=== PATIENT | male | born 1940 | race Caucasian/White ===

== ENCOUNTER → 2018-08-22 | Outpatient (CLI) | payer MEDICARE, BC ==
[2018-01-26 11:00] VITALS: BP 104/46
[~2018-08-22] MED LIST: ACET325T9 PO; ASPI81TA50 PO; ASPI81TA59 PO; ATORVASTATIN CA80 MG PO; Bisacodyl Supp PR; CEPH250C PO; CRESTOR20 MG PO; DOCU-109 PO; DONE5TAB7 PO; DRON400T PO; FEXO60TA25 PO; FURO-68 PO; FURO-69 PO; HYDR-2769 PO; ISOS30TA4 PO; KEFLEX; LEVO150T5 PO; LISI30TA4 PO; METO25TA4 PO; METO50TA6 PO; NIFE30TA17 PO; POTA20TA84 PO; SITA1TAB11 PO; SITA1TAB7 PO; SOTA80TA48 PO; SPIR25TA PO; WARF-31 PO; WARF-78 PO; WARF10TA40 PO; WARF1TAB74 PO; WARF2TAB96 PO; WARF3TAB50 PO; WARF4TAB64 PO; WARF6TAB47 PO
[2018-08-22 09:36] LABS: CALCIUM 9.2 mg/dL (8.5-10.1); CREATININE 3.3 mg/dL (0.7-1.3); GFR 18.1; MAGNESIUM 2.3 mg/dL (1.8-2.4); POTASSIUM 4.9 mmol/L (3.5-5.1)
--- NOTE | 2018-08-22 12:19 | RAD ---
CHEST PA LATERAL History: kidney failure Comparison: 01/25/2018 AP view of the chest. Findings: Sternal wires [place] clips are present. The cardiomediastinal silhouette is normal. Pulmonary vasculature is normal. The lungs are clear. Mild interstitial thickening or edema throughout the lung mesa is evident. No pleural effusion or pneumothorax is seen. There is no acute bone abnormality. IMPRESSION: Mild interstitial thickening or edema of lung mesa similar to previous exam. No focal infiltrate. Electronically signed by: Waylon Thomas MD (08/22/2018 12:15 PM) [facility]
== END | disposition home or self-care (01) ==
LOC: RAD 08:41
PROVIDERS: ATTEND Internal Medicine Cardiovascular Disease
DX: N19 Unspecified kidney failure (principal)
CPT/HCPCS: 36415; 71046; 80048; 83695; 83735

== ENCOUNTER → 2018-09-04 | Outpatient (CLI) | payer MEDICARE, BC ==
[2018-01-26 11:00] VITALS: BP 104/46
--- NOTE | 2018-09-04 10:45 | KCIC ---
RENAL COMPLETE BILATERAL: 09/04/2018 9:15 AM Indication: 78 years old Male. She KV stage IV. Comparison: None. FINDINGS: Sonographic evaluation of the kidneys is performed utilizing grayscale and color Doppler. Right kidney measures 9.2 x 4.5 x 4.1 cm. Right inferior pole simple cyst measures 2.9 x 3.5 x 3.7 cm (Bosniak 1). No suspicious solid renal mass. No hydronephrosis or renal calculi. Left kidney measures 11.4 x 3.9 x 5.1 cm. Left superior pole renal cyst measures 2.0 x 2.0 x 1.4 cm (Bosniak 1). Left midpole renal cyst measures 1.5 x 1.5 x 1.0 cm (Bosniak 1). Prevoid bladder volume 255 cc. Postvoid bladder volume 45 cc. No significant bladder wall thickening. There is an infrarenal abdominal aortic aneurysm measuring 2.8 x 3.5 cm with atherosclerotic calcification. IMPRESSION: 1. Simple appearing bilateral renal cysts. No obstructive uropathy is identified by ultrasound. 2. Infrarenal abdominal aortic aneurysm measuring 2.8 x 3.5 cm. 3. Post void bladder volume 45 cc. Electronically signed by: Yael Hu MD (09/04/2018 10:42 AM) [id number]
== END | disposition home or self-care (01) ==
LOC: KCIC US 08:32
PROVIDERS: ATTEND Internal Medicine Nephrology
DX: N28.1 Cyst of kidney, acquired (principal); I71.4 Abdominal aortic aneurysm, without rupture; I70.0 Atherosclerosis of aorta; I13.0 Hypertensive heart and chronic kidney disease with heart failure and stage 1 through stage 4 chronic kidney disease, or unspecified chronic kidney disease; N18.4 Chronic kidney disease, stage 4 (severe); I50.32 Chronic diastolic (congestive) heart failure
CPT/HCPCS: 76770